=== PATIENT | female | born 1985 ===

== ENCOUNTER 2018-05-11 07:44 | Emergency (ER) | payer OTHER ==
--- NOTE | 2018-05-11 08:22 | C.PDOC ---
History Of Present Illness 33 y/o female presents to the ED for evaluation of right finger injury sustained yesterday. Patient is now complaining of bruising and swelling to the end of right 3rd finger. States the finger was accidentally caught in a door. Also reports limited movement due to pain. No other injury. No changes in sensation. Time Seen by Provider: 05/11/18 08:19 Chief Complaint (Nursing): Finger,Hand,&Wrist History Per: Patient History/Exam Limitations: no limitations Onset/Duration Of Symptoms: Days Current Symptoms Are (Timing): Still Present Past Medical History Reviewed: Historical Data, Nursing Documentation, Vital Signs Vital Signs: Last Vital Signs Temp 98.7 F 05/11/18 07:51 Pulse 72 05/11/18 07:51 Resp 20 05/11/18 07:51 BP 136/69 05/11/18 07:51 Pulse Ox 99 05/11/18 07:51 Family History: States: No Known Family Hx - Social History Hx Tobacco Use: No Hx Alcohol Use: No Hx Substance Use: No - Immunization History Hx Tetanus Toxoid Vaccination: Yes Hx Influenza Vaccination: No Hx Pneumococcal Vaccination: No Review Of Systems Except As Marked, All Systems Reviewed And Found Negative. Musculoskeletal: Positive for: Hand Pain (right 3rd digit) Skin: Negative for: Lesions, Bruising Neurological: Negative for: Weakness, Numbness, Incoordination Physical Exam - Physical Exam Appears: Non-toxic, In Acute Distress (mild distress) Skin: Warm, Dry, Other (+ Abrasion over the cuticle/proximal fold to right 3rd digit) Head: Atraumatic, Normacephalic Eye(s): bilateral: Normal Inspection Oral Mucosa: Moist Extremity: Normal ROM (with limited ROM secondary to pain), Capillary Refill (< 2 sec), No Deformity, Swelling (to distal right 3rd digit), Other (Right hand (+) subungual hematoma to distal right 3rd digit) Pulses: Left Radial: Normal, Right Radial: Normal Neurological/Psych: Oriented x3, Normal Speech, Normal Motor, Normal Sensation ED Course And Treatment O2 Sat by Pulse Oximetry: 99 (RA) Pulse Ox Interpretation: Normal - Other Rad R FINGER X-Ray: Interpreted by Me (NEG) Reevaluation Time: 09:08 Reassessment Condition: Improved (FINGER SPLINT) Medical Decision Making Medical Decision Making: Impression: Right finger trauma Plan: --Right hand x-ray --Motrin 600 mg PO --Tylenol w/ codeine x1 --Reassess Disposition Counseled Patient/Family Regarding: Studies Performed, Diagnosis, Need For Followup, Rx Given - Disposition Referrals: Dameon Paulson MD [Staff Provider] - Disposition: HOME/ ROUTINE Disposition Time: 09:09 Condition: IMPROVED Prescriptions: Tramadol HCl [Ultram] 50 mg PO QID #20 tab Instructions: Common Finger Injuries (DC) Forms: [employer] ([place]), Work Excuse - Clinical Impression Clinical Impression: Subungual hematoma of finger - Scribe Statement The provider has reviewed the documentation as recorded by the Elan Rivero Provider Attestation: All medical record entries made by the Elan were at my direction and personally dictated by me. I have reviewed the chart and agree that the record accurately reflects my personal performance of the history, physical exam, medical decision making, and the department course for this patient. I have also personally directed, reviewed, and agree with the discharge instructions and disposition.
[2018-05-11] MEDS ORDERED: Acetaminophen-Codeine 300/30 mg Tab PO STA (09:06)
[2018-05-11] MEDS ORDERED: Acetaminophen-Codeine 300/30 mg Tab PO ONE (09:16)
[2018-05-11 10:01] VITALS: BP 118/76; PULSE 78; RESP 18; TEMP 98
[2018-05-11 12:45] VITALS: O2SAT 99
--- NOTE | 2018-05-11 14:05 | RAD ---
Date of service: 05/11/2018 PROCEDURE: Right middle finger radiographs. HISTORY: trauma COMPARISON: None. TECHNIQUE: AP radiograph of the right hand, as well as spot oblique and lateral images of right middle finger were obtained. FINDINGS: RIGHT MIDDLE FINGER: Right middle finger normal, without fracture of focal lesion. Remainder of the right hand (as seen on the AP view) grossly unremarkable. JOINTS: Normal. SOFT TISSUES: There appears to be very mild soft tissue swelling about the PIP joint 3rd and possibly 4th fingers OTHER FINDINGS: None. IMPRESSION: No evidence of acute displaced fracture nor dislocation. Suspect mild soft tissue swelling PIP joint of the 3rd and possibly 4th fingers.
== END 2018-05-11 10:01 | disposition home or self-care (01) ==
LOC: C.ER 07:44
DX: S60.131A Contusion of right middle finger with damage to nail, initial encounter (principal); W23.0XXA Caught, crushed, jammed, or pinched between moving objects, initial encounter